=== PATIENT | female | born 1975 | race Caucasian/White ===

== ENCOUNTER 2017-04-30 06:17 | Emergency (ER) | payer BC, OTHER ==
[2017-04-30] MEDS ORDERED: Ondansetron INJ* 2 MG/ML VIAL IV ONE ×2 (06:39→07:42)
[2017-04-30] MEDS ORDERED: NS 0.9% 1000 ML* 1,000 ML IV ONE ×2 (06:39→13:00)
[2017-04-30 06:52] LABS: Hematocrit 45 % (35-47); Hemoglobin 15.2 g/dl (12.0-16.0); Mean Corpuscular HGB Conc 34 g/dl (31-36); Mean Corpuscular Hemoglobin 32 pg (27-31); Mean Corpuscular Volume 95 fL (80-97); Mean Platelet Volume 9 um3 (7.4-10.4); Red Cell Distribution Width 13 % (10.5-15); White Blood Count 11.5 10^3/ul (3.5-10.8)
[2017-04-30 06:57] LABS: Comments Flag Yes
[2017-04-30 06:58] LABS: Add Diff/Slide Review? Slide Review Added
[2017-04-30 07:07] LABS: ALT 17 U/L (7-52); AST 19 U/L (13-39); Albumin 4.6 g/dL (3.2-5.2); Alkaline Phosphatase 84 U/L (34-104); Anion Gap 5 mmol/L (2-11); BUN/Creatinine Ratio 16.4 (8-20); Blood Urea Nitrogen 11 mg/dL (6-24); C Reactive Protein 6.98 mg/L (< 5.00); CO2 Carbon Dioxide 23 mmol/L (22-32); Calcium 9.6 mg/dL (8.6-10.3); Chloride 109 mmol/L (101-111); EGFR African American 124.7 (>60); Globulin 3.5 g/dL (2-4); Glucose 124 mg/dL (70-100); Lipase 49 U/L (11.0-82.0); Potassium 3.7 mmol/L (3.5-5.0); Sodium 137 mmol/L (133-145); Total Protein 8.1 g/dL (6.4-8.9)
[2017-04-30] MEDS ORDERED: NS 0.9% 1000 ML* 2,000 ML IV ONE (08:01)
[2017-04-30] MEDS ORDERED: LORazepam INJ* 2 MG/ML 1 ML VIAL IV ONE ×2 (08:01→09:20)
[2017-04-30 08:03] LABS: Urine Bilirubin Negative (Negative); Urine Glucose Negative (Negative); Urine Nitrite Negative (Negative)
[2017-04-30 08:26] LABS: Benzodiazepine Urine Screen None Detected (None Detect)
--- NOTE | 2017-04-30 09:30 | RAD ---
Indication: Chest pain. Single frontal view of the chest performed at 0825 hours was reviewed. No prior study is available for comparison. No mediastinal shift is noted. Heart is of normal size and configuration. Lung wilson appear clear. IMPRESSION: NO ACTIVE CARDIOPULMONARY DISEASE IS NOTED.
[2017-04-30 09:50] LABS: Acetaminophen < 15 mcg/mL; Alcohol < 10 mg/dL (<10); Salicylate < 2.50 mg/dL (<30)
[2017-04-30] MEDS ORDERED: Ketorolac INJ* 30 MG/ML 1 ML VIAL IV ONE (11:06)
[2017-04-30] MEDS ORDERED: Metoclopramide IV* 5 MG/ML 2 ML VIAL IV ONE (11:06)
[2017-04-30] MEDS ORDERED: diPHENhydraMINE IV* 50 MG/ML 1 ml VIAL (BENADRYL) IV ONE (13:00)
--- NOTE | 2017-04-30 13:37 | RAD ---
Indication: Headaches. CT of the brain was performed without IV contrast. Ventricular structures are midline. No midline shift is noted. The extra-axial spaces are unremarkable. There is no evidence of intracranial mass or hemorrhage. No other high or low density lesions are identified. Bony calvaria, mastoid air cells and paranasal sinuses are otherwise unremarkable. IMPRESSION: No intracranial mass or hemorrhage is noted.
[2017-04-30 15:12] VITALS: BP 137/69
--- NOTE | 2017-04-30 17:57 | ED ---
Shorty Mascorro Rebecca, scribed for Grant Poon MD on 04/30/17 at 0802 . Neck Pain - HPI Summary HPI Summary: Pt is a 41 y/o F who presents to ED c/o acute on chronic neck pain. Pain worsened this morning at 0600 upon waking up and has been constant since onset. Pain is in the neck with radiation to the head. Pain was initially severe though she reports it has now improved. Additionally c/o nausea, SOB and CP characterized as tightness. Denies LE pain. PMHx chronic neck pain and depression. Believes her CP is secondary to anxiety. No PMHx DVT. - History of Current Complaint Chief Complaint: EDNeckComplaint Stated Complaint: NECK PAIN//HEADACHE//VOMITING Time Seen by Provider: 04/30/17 06:39 Hx Obtained From: Patient Hx Last Menstrual Period: 07/30/12 Timing: Constant Onset/Duration: Still Present, Worse Since - This morning at 0600 Severity Initially: Severe - 08/06 Severity Currently: Moderate Location: Discrete At: - Neck, Radiates To: - Head - Allergies/Home Medications Allergies/Adverse Reactions: Allergies Allergy/AdvReac Type Severity Reaction Status Date / Time No Known Allergies Allergy Verified 09/20/12 10:49 Home Medications: Home Medications DULoxetine DR ESTRADA* [Cymbalta CAP*] 20 mg PO BID 04/30/17 [History Confirmed 02/11] PMH/Surg Hx/FS Hx/Imm Hx Endocrine/Hematology History: Denies: Hx Diabetes, Hx Thyroid Disease Cardiovascular History: Denies: Hx Hypertension Respiratory History: Denies: Hx Asthma, Hx Chronic Obstructive Pulmonary Disease (COPD) GI History: Denies: Hx Ulcer Musculoskeletal History: Reports: Other Musculoskeletal History - Hx Chronic neck pain - Surgical History Surgery Procedure, Year, and Place: 1999 - Bicornate Uterus/plastic surgery done. 2011 - Right Knee Surgery: arthroscopic Infectious Disease History: No Infectious Disease History: Denies: Hx Hepatitis, Hx Human Immunodeficiency Virus (HIV), Traveled Outside the [place] in Last 30 Days - Family History Known Family History: Positive: Diabetes, Other - Arthritis, [place] - Social History Alcohol Use: Weekly Substance Use Type: Reports: Marijuana Smoking Status (MU): Light Every Day Tobacco Smoker Review of Systems Positive: Chest Pain - Tightness Positive: Shortness Of Breath Positive: Nausea Positive: Arthralgia - Neck pain with radiation to the head, Other - Denies LE pain All Other Systems Reviewed And Are Negative: Yes Physical Exam - Summary Physical Exam Summary: General: Moderate distress, hyperventilating Skin: Warm, color reflects adequate perfusion, dry Head: Normal Eyes: EOMI, GERRI ENT: Normal Neck: Supple Respiratory: CTA, breath sounds present Cardiovacular: RRR Abdomen: Soft, nontender Bowel: Present Musc: Normal, strength/ROM intact, no calf tenderness or edema Neuro: Normal, sensory/motor intact, A&O x3 Psych: affect/mood appropriate Triage Information Reviewed: Yes Vital Signs On Initial Exam: Initial Vitals Temp Pulse Resp BP Pulse Ox 97.3 F 78 16 186/124 100 04/30/17 06:22 04/30/17 06:22 04/30/17 06:22 04/30/17 06:22 04/30/17 06:22 Vital Signs Reviewed: Yes - [place] Coma Scale Coma Scale Total: 15 Diagnostics - Vital Signs Vital Signs Temp Pulse Resp BP Pulse Ox 04/30/17 06:39 70 21 100 04/30/17 06:37 158/112 04/30/17 06:22 97.3 F 78 16 186/124 100 - Laboratory Lab Results: Lab Results 04/30/17 04/30/17 04/30/17 Range/Units 06:34 06:34 06:34 WBC 11.5 H (3.5-10.8) 10^3/ul RBC 4.70 (4.0-5.4) 10^6/ul Hgb 15.2 (12.0-16.0) g/dl Hct 45 (35-47) % MCV 95 (80-97) fL MCH 32 H (27-31) pg MCHC 34 (31-36) g/dl RDW 13 (10.5-15) % Plt Count 269 (150-450) 10^3/ul MPV 9 (7.4-10.4) um3 Neut % (Auto) 42.1 (38-83) % Lymph % (Auto) 45.8 (25-47) % Delta % (Auto) 8.4 (1-9) % Eos % (Auto) 2.7 (0-6) % Baso % (Auto) 1.0 (0-2) % Absolute Neuts (auto) 4.8 (1.5-7.7) 10^3/ul Absolute Lymphs (auto) 5.2 H (1.0-4.8) 10^3/ul Absolute Monos (auto) 1.0 H (0-0.8) 10^3/ul Absolute Eos (auto) 0.3 (0-0.6) 10^3/ul Absolute Basos (auto) 0.1 (0-0.2) 10^3/ul Absolute Nucleated RBC 0 10^3/ul Nucleated RBC % 0 Hem Pathologist Commnt Pending Sodium 137 (133-145) mmol/L Potassium 3.7 (3.5-5.0) mmol/L Chloride 109 (101-111) mmol/L Carbon Dioxide 23 (22-32) mmol/L Anion Gap 5 (2-11) mmol/L BUN 11 (6-24) mg/dL Creatinine 0.67 (0.51-0.95) mg/dL Est GFR ( Amer) 124.7 (>60) Est GFR (Non-Af Amer) 97.0 (>60) BUN/Creatinine Ratio 16.4 (8-20) Glucose 124 H (70-100) mg/dL Lactic Acid 1.3 (0.5-2.0) mmol/L Calcium 9.6 (8.6-10.3) mg/dL Total Bilirubin 0.40 (0.2-1.0) mg/dL AST 19 (13-39) U/L ALT 17 (7-52) U/L Alkaline Phosphatase 84 (34-104) U/L C-Reactive Protein 6.98 H (< 5.00) mg/L Total Protein 8.1 (6.4-8.9) g/dL Albumin 4.6 (3.2-5.2) g/dL Globulin 3.5 (2-4) g/dL Albumin/Globulin Ratio 1.3 (1-3) Lipase 49 (11.0-82.0) U/L Result Diagrams: 04/30/17 06:34 04/30/17 06:34 Lab Statement: Any lab studies that have been ordered have been reviewed, and results considered in the medical decision making process. - Radiology CXR Xray Interpretation: No Acute Changes - NO ACTIVE CARDIOPULMONARY DISEASE IS NOTED. Radiology Interpretation Completed By: Radiologist - CT Brain CT CT Interpretation: No Acute Changes - No intracranial mass or hemorrhage is noted. CT Interpretation Completed By: Radiologist - EKG 0807 Cardiac Rate: Bradycardia - 58 bpm EKG Rhythm: Sinus Bradycardia ST Segment: Normal Ectopy: None Re-Evaluation - Re-Evaluation First Eval Re-Evaluation Time: 11:00 Change: Improved Comment: Discussed CXR, EKG and lab results with the pt. She is less anxious and says that today's onset of sx are similar to what typically occurs. She starts with neck pain, then a SHELL then a panic attack and thats what she thinks occurred today. Her panic attack has improved. Still having neck pain and nausea and will treat with pain meds and antiemetics. Second Eval Re-Evaluation Time: 13:04 Change: Unchanged Comment: Continues to c/o nausea. Third Eval Re-Evaluation Time: 14:05 Comment: Discussed Brain CT results. Neck Course/Dx - Course Assessment/Plan: Pt is a 41 y/o F who presents to ED c/o acute on chronic neck pain with radiation to the head, worse this morning at 0600. Pain was initially severe though she reports it has now improved. Additionally c/o nausea, SOB and CP characterized as tightness. Denies LE pain. PMHx chronic neck pain and depression. Believes her CP is secondary to anxiety. No PMHx DVT. EKG reveals no ectopy. NO CRITICAL CARE TIME. PATIENT REPORTS SHE STARTED WITH NECK PAIN WHICH THEN GAVE HER NAUSEA AND ANXIETY WITH CHEST PAIN AND SHORTNESS OF BREATH. RESULTS DISCUSSED WITH PATIENT. NECK/CHEST PAIN/SHORTNESS OF BREATH IMPROVED. NAUSEA STILL REMAINS. DISCUSSED ADMISSION VERSES DISCHARGE HOME. PATIENT PREFERS TO GO HOME. DISCHARGE HOME STABLE. - Diagnoses Provider Diagnoses: Neck pain, Nausea Discharge - Discharge Plan Condition: Stable Disposition: HOME Prescriptions: Ondansetron ODT TAB* [Zofran 4 MG Odt TAB*] 4 mg PO Q6H PRN #15 tab.odt PRN Reason: Nausea Patient Education Materials: Acute Nausea and Vomiting (ED), Neck Pain (ED) Referrals: Edilson Mensah MD [Primary Care Provider] - Additional Instructions: FOLLOW UP WITH YOUR DOCTOR. RETURN TO THE EMERGENCY DEPARTMENT FOR ANY WORSENING OF YOUR CONDITION; PAIN, WEAKNESS, FEVER, YOU FEEL ILL OR QUESTIONS OR CONCERNS. The documentation as recorded by the Shorty nguyen Rebecca accurately reflects the service I personally performed and the decisions made by me, Grant Poon MD.
== END 2017-04-30 15:12 | disposition home or self-care (01) ==
LOC: ED 06:17
DX: M54.2 Cervicalgia (principal); R11.0 Nausea; Z72.0 Tobacco use
CPT/HCPCS: 36415; 70450; 71010; 80053; 80307; 80320; 80329; 81003; 83605; 83690; 84484; 84702; 85025; 85060; 85379; 85610; 86140; 93005; 96360; 96374; 96375; 96376; 99283; G0480; J1200; J1885; J2060; J2405